=== PATIENT | male | born 1955 | race Caucasian/White ===

== ENCOUNTER → 2018-06-10 | Outpatient (CLI) | payer SELFPAY | LOC: COL.VAS 05-18 10:30 | DX: I07.1 Rheumatic tricuspid insufficiency (principal) ==

== ENCOUNTER → 2018-06-30 | Outpatient (CLI) | payer BC | LOC: COL.PUL 07:59 | DX: J43.9 Emphysema, unspecified (principal); J98.4 Other disorders of lung; K76.89 Other specified diseases of liver; J98.6 Disorders of diaphragm ==

== ENCOUNTER 2019-03-01 07:18 | Day surgery (SDC) | payer BC ==
[2019-03-01] VITALS (13 sets, daily range): BP systolic 92–122; BP diastolic 62–82; PULSE 58–84; TEMP 97.7–98
[~2019-03-01] VITALS: Ht 183 cm; Wt 86.0 kg
[2019-03-01 07:55] LABS: INR 0.9 (0.8-3.0); PROTHROMBIN TIME 10.6 SECONDS (9.7-12.8)
[2019-03-01 07:59] LABS: CALCIUM 9.4 mg/dL (8.4-10.2); CREATININE, serum 1.18 (0.66-1.25); POTASSIUM 4.4 mmol/L (3.4-5.0)
[2019-03-01 08:05] LABS: HEMOGLOBIN 16.8 g/dl (13.5-18.0); MEAN CELL VOLUME 91 fl (80.0-100.0); MEAN CORPUSCULAR HEMOGLOBIN 30 pg (27.0-31.0); MEAN CORPUSCULAR HGB CONC 32 g/dl (33.0-37.0); MEAN PLATELET VOLUME 12.3 fl (7.4-10.4); PLATELET COUNT 170 K/mm3 (130-400); REDCELL DISTRIBUTION WIDTH-CV 14.1 % (11.5-14.5)
[2019-03-01] MEDS ORDERED: MULTI VITAMINS1 TAB PO (08:19)
[2019-03-01] MEDS ORDERED: STOOL SOFTENER100 M2 PO (08:20)
[2019-03-01] MEDS ORDERED: TRELEGY ELLIPT1 EACH IH (08:20)
[2019-03-01] MEDS ORDERED: NORVASC 5MG5 MG/TAB PO (08:21)
[2019-03-01] MEDS ORDERED: ASPIRIN E.C. 8181 MG PO (08:21)
[2019-03-01] MEDS ORDERED: PRINIVIL20 MG PO (08:21)
--- NOTE | 2019-03-01 09:13 | NUR ---
PLEASE SEE MERGE FOR ALL MEDICATION ADMINISTRATION AND ASSESSMENT FOR SEDATION DURING AND POST PROCEDURE.
[2019-03-01] MEDS ORDERED: LIPITOR 40MG TA40 MG PO (09:52)
--- NOTE | 2019-03-01 10:00 | NUR ---
Pt returned to [facility] 12 per bed s/p heart cath. Pt resting well, fiancee at bedside.
--- NOTE | 2019-03-01 10:10 | NUR ---
Patient returned to room 12 in express, initiated monitoring observed corie site arterial and venous at 1008 with Raven BENOIT. The area is clean and dry, no swelling bleeding or hematoma noted.
--- NOTE | 2019-03-01 14:30 | NUR ---
Pt has ambulated, voided and pablo PO intake s n/v. PIV removed with catheter intact.
--- NOTE | 2019-03-01 14:50 | NUR ---
Pt discharged per w/c by nurse clare gillespie.
== END 2019-03-01 17:24 | disposition home or self-care (01) ==
LOC: COL.CAR 07:18
PROVIDERS: Internal Medicine Cardiovascular Disease
DX: I25.10 Atherosclerotic heart disease of native coronary artery without angina pectoris (principal); I27.20 Pulmonary hypertension, unspecified; R07.89 Other chest pain; I10 Essential (primary) hypertension; Z79.899 Other long term (current) drug therapy; J44.9 Chronic obstructive pulmonary disease, unspecified; F17.210 Nicotine dependence, cigarettes, uncomplicated; R09.02 Hypoxemia; Z83.6 Family history of other diseases of the respiratory system
CPT/HCPCS: C1760; C1894; J1644; J2250; J3010; Q9967

== ENCOUNTER → 2022-04-09 | Outpatient (CLI) | payer MEDICARE, MEDICAID ==
[~2022-04-09] MED LIST: ASPIRIN E.C. 8181 MG PO; LIPITOR 40MG TA40 MG PO; MULTI VITAMINS1 TAB PO; NORVASC 5MG5 MG/TAB PO; PRINIVIL20 MG PO; STOOL SOFTENER100 M2 PO; TRELEGY ELLIPT1 EACH IH
== END ==
LOC: COL.RAD 12:56
DX: R06.02 Shortness of breath (principal)

== ENCOUNTER → 2023-10-09 | Outpatient (CLI) | payer MEDICARE, MEDICAID | LOC: COL.RAD 13:14 | DX: N40.0 Benign prostatic hyperplasia without lower urinary tract symptoms (principal); N32.89 Other specified disorders of bladder; J43.9 Emphysema, unspecified; R19.09 Other intra-abdominal and pelvic swelling, mass and lump | CPT/HCPCS: Q9967 ==

== ENCOUNTER → 2023-11-25 | Outpatient (CLI) | payer MEDICARE | LOC: COL.RAD 13:07 | DX: Z12.2 Encounter for screening for malignant neoplasm of respiratory organs (principal); R91.8 Other nonspecific abnormal finding of lung field; Z87.891 Personal history of nicotine dependence ==

== ENCOUNTER → 2024-07-07 | Outpatient (CLI) | payer MEDICARE, MEDICAID | LOC: MHCPAIN 13:54 | DX: M48.061 Spinal stenosis, lumbar region without neurogenic claudication (principal); M25.551 Pain in right hip; J44.9 Chronic obstructive pulmonary disease, unspecified; M54.16 Radiculopathy, lumbar region | CPT/HCPCS: G0463 ==